=== PATIENT | male | born 1990 | race Hispanic/Latino ===

== ENCOUNTER 2021-03-10 18:29 | Emergency (ER) | payer OTHER ==
[~2021-03-10] VITALS: Ht 172.7 cm; Wt 80.7 kg
[2021-03-10 20:19] LABS: PLATELET COUNT 248 K/uL (142-355)
[2021-03-10 20:28] LABS: POTASSIUM 3.9 mmol/L (3.6-5.2); SODIUM 140 mmol/L (136-145)
[2021-03-10 22:15] VITALS: BP 132/81; TEMP 98.5
== END 2021-03-10 22:15 | disposition home or self-care (01) ==
LOC: ED 18:29
PROVIDERS: Emergency Medicine Emergency Medical Services
DX: R07.89 Other chest pain (principal)
CPT/HCPCS: 36415; 80053; 80061; 84484; 85027; 93005; 96374; 99284; J1885

== ENCOUNTER 2022-11-12 19:54 | Emergency (ER) | payer OTHER ==
[~2022-11-12] VITALS: Ht 172.7 cm; Wt 79.4 kg
[2022-11-12 21:15] LABS: PLATELET COUNT 262 K/uL (142-355)
[2022-11-12 21:23] LABS: POTASSIUM 3.8 mmol/L (3.6-5.2)
[2022-11-12 22:00] VITALS: BP 132/88; TEMP 98.9
== END 2022-11-12 22:00 | disposition home or self-care (01) ==
LOC: ED 19:54
PROVIDERS: Emergency Medicine Emergency Medical Services
DX: R09.1 Pleurisy (principal)
CPT/HCPCS: 36415; 80048; 84484; 85027; 85379; 93005; 96365; 96374; 99283; 99284; J1885

== ENCOUNTER 2022-11-30 14:25 | Outpatient (CLI) | payer OTHER | END 2022-11-30 19:01 | disposition home or self-care (01) | LOC: MRI 14:25 | PROVIDERS: ATTEND Internal Medicine | DX: R51.9 Headache, unspecified (principal) | CPT/HCPCS: 36415; 82565; 84520; A9576 ==

== ENCOUNTER 2022-12-04 08:22 | Outpatient (CLI) | payer OTHER | END 2022-12-04 20:58 | LOC: CT 08:22 | PROVIDERS: ATTEND Internal Medicine | DX: R07.89 Other chest pain (principal) | CPT/HCPCS: Q9963 ==

== ENCOUNTER 2023-01-22 15:59 | Outpatient (CLI) | payer OTHER | END 2023-01-22 19:17 | disposition home or self-care (01) | LOC: RESP 15:59 | PROVIDERS: ATTEND Specialist | DX: R07.89 Other chest pain (principal) ==

== ENCOUNTER 2023-02-05 11:09 | Outpatient (CLI) | payer OTHER | END 2023-02-05 20:23 | disposition home or self-care (01) | LOC: RESP 11:09 | PROVIDERS: ATTEND Specialist | DX: R07.89 Other chest pain (principal) ==